=== PATIENT | male | born 1965 | race Caucasian/White ===

== ENCOUNTER 2018-08-31 00:48 | Emergency (ER) | payer SELFPAY ==
[2018-08-31 01:33] VITALS: TEMP 97.6; O2SAT 100
[2018-08-31] MEDS ORDERED: Lidocaine 2% Jelly (5 ml) TOP ONE (01:46)
[2018-08-31] MEDS ORDERED: Lidocaine 5% Patch TD STA (02:15)
[2018-08-31] MEDS ORDERED: Lidocaine 2% Jelly (Uro-Jet) ONE (02:17)
--- NOTE | 2018-08-31 03:55 | ED PDOC ---
HPI: Back Time Seen by Provider: 08/31/18 01:31 Chief Complaint (Nursing): Back Pain History Per: Patient History/Exam Limitations: no limitations Onset/Duration Of Symptoms: Days Current Symptoms Are (Timing): Still Present Additional Complaint(s): Hx of DM presenting with lower back pain radiating to L leg. States the pain is worse with movement and sitting. States he feels the pain radiate from his L lower back into his buttock and down into her leg into the calf. Denies any injury, denies weakness, numbness, change in bowel or bladder habit, fevers, sensory loss, chills, or any other concerning symptoms. PMD: Dr. Galvan Past Medical History Reviewed: Historical Data, Nursing Documentation, Vital Signs Vital Signs: Last Vital Signs Temp 97.6 F 08/31/18 01:31 Pulse 76 08/31/18 01:31 Resp 16 08/31/18 01:31 BP 140/91 H 08/31/18 01:31 Pulse Ox 100 08/31/18 01:31 - Medical History PMH: Diabetes, HTN - Family History Family History: States: Unknown Family Hx - Immunization History Hx Tetanus Toxoid Vaccination: Yes Hx Influenza Vaccination: Yes Hx Pneumococcal Vaccination: Yes - Home Medications Home Medications: Ambulatory Orders Medication Instructions Recorded GlipiZIDE [Glipizide] 10 mg PO DAILY 02/10/16 MetFORMIN [glucOPHAGE] 1,000 mg PO BID 02/10/16 Naproxen [Naprosyn] 1 tab PO BID PRN #25 tab 07/02/16 Ketorolac Tromethamine [Toradol] 10 mg PO BID #20 tab 08/31/18 Lidocaine 1 each TP DAILY #10 adh..patch 08/31/18 - Allergies Allergies/Adverse Reactions: Allergies Allergy/AdvReac Type Severity Reaction Status Date / Time No Known Allergies Allergy Verified 07/02/16 18:34 Review of Systems ROS Statement: Except As Marked, All Systems Reviewed And Found Negative Musculoskeletal: Positive for: Back Pain, Leg Pain Physical Exam - Reviewed Nursing Documentation Reviewed: Yes Vital Signs Reviewed: Yes - Physical Exam Appears: Positive for: Well, Non-toxic, No Acute Distress Head Exam: Positive for: ATRAUMATIC, NORMAL INSPECTION, NORMOCEPHALIC Skin: Positive for: Normal Color, Warm, DRY Eye Exam: Positive for: EOMI, Normal appearance, PERRL ENT: Positive for: Normal ENT Inspection Neck: Positive for: Normal, Painless ROM Cardiovascular/Chest: Positive for: Regular Rate, Rhythm Respiratory: Positive for: CNT, Normal Breath Sounds Gastrointestinal/Abdominal: Positive for: Normal Exam, Soft Back: Positive for: Muscle Spasm (Paravertebral L lumbar tenderness to palpa tion). Negative for: Decreased ROM Extremity: Positive for: Normal ROM. Negative for: Calf Tenderness Neurologic/Psych: Positive for: Alert, corporate trainer II-XII, Oriented, Gait (Normal). Negative for: Motor/Sensory Deficits - ECG O2 Sat by Pulse Oximetry: 100 Pulse Ox Interpretation: Normal Medical Decision Making Medical Decision MakinAM A/P: Hx of DM, HTN presenting with back pain --Well appearing, ambulatory, stable vitals, normal neuro exam --Symptoms appear to be musculoskeleta, not concerned for AAA, dissection, abscess, cord-impingement syndrome, or other acute pathology --Will treat symptomatically and re-eval 3AM --Patient states back pain has resolved but still having calf pain --Will check U/S to rule out DVT 0406 Extremity US Findings: Real-time ultrasound images of the deep venous system with Doppler evaluation. Normal compression, spontaneity and augmentation. Normal color Doppler. No intraluminal thrombus is seen. IMPRESSION: No evidence of deep venous thrombosis. 415 --Results given to patient --Advised patient to followup with Dr. Galvan --PRescriptions for lidoderm and toradol given --Very well appearing, improved upon discharge Disposition - Clinical Impression Clinical Impression: Back pain - Disposition Referrals: [facility] [Outside] Disposition: Routine/Home Disposition Time: 04:15 Condition: IMPROVED Prescriptions: Ketorolac Tromethamine [Toradol] 10 mg PO BID #20 tab Lidocaine 1 each TP DAILY #10 adh..patch Instructions: Muscle Spasms (DC), Low Back Pain in Adults Forms: [facility] (Amharic)
[2018-08-31 04:40] VITALS: BP 138/93; PULSE 68; RESP 18
--- NOTE | 2018-08-31 09:43 | US ---
Date of service: 08/31/2018 HISTORY: r/o DVT. PRIORS: None. FINDINGS: 2-D, color and duplex Doppler analysis of the left lower extremity venous circulation using routine protocol from the femoral veins through the popliteal veins. Venous compressibility: Normal. Flow and augmentation patterns: Normal. Visualized veins upper third of calf: Normal. Manley cyst: None. IMPRESSION: No sonographic or Doppler evidence for DVT in left lower extremity. The preliminary findings for this examination were reported by [facility] at 4:06 a.m. on 08/31/2018. There is concurrence of this report with the preliminary findings.
== END 2018-08-31 04:35 | disposition home or self-care (01) ==
LOC: H.ER 00:48
DX: M54.9 Dorsalgia, unspecified (principal); M79.605 Pain in left leg; E11.9 Type 2 diabetes mellitus without complications; I10 Essential (primary) hypertension; Z79.84 Long term (current) use of oral hypoglycemic drugs
CPT/HCPCS: 93971; 96372; 99283; J1885